=== PATIENT | female | born 1990 | race African-American/Black ===

== ENCOUNTER 2018-05-12 12:56 | Inpatient (IN) | payer OTHER ==
[2018-05-12] MEDS ORDERED: HYDROmorphONE 0.5 MG/0.5 ML SYG IV (13:30)
[2018-05-12] MEDS ORDERED: MAGNESIUM HYDROXIDE 30ML CUP PO (14:00)
[2018-05-12] MEDS ORDERED: DOCUSATE SODIUM 100 MG CAP PO (14:00)
[2018-05-12] MEDS: HEPARIN 5,000 UNIT/0.5 ML VIAL SC ×2 (14:00→22:00)
[2018-05-12] MEDS ORDERED: NACL 0.9% 3 ML SYG IV (14:00)
[2018-05-12] MEDS ORDERED: BISACODYL (EC) 5 MG TAB PO (14:00)
[2018-05-12] MEDS ORDERED: CEPASTAT LOZENGE MT (14:00)
[2018-05-12] MEDS ORDERED: ALBUTEROL/IPRATROPIUM (NEB) 3 ML AMP HHN (14:00)
[2018-05-12] MEDS: FOLIC ACID 1 MG TAB PO (14:14)
[2018-05-12] MEDS: FAMOTIDINE 20 MG TAB PO (14:14)
[2018-05-12] MEDS: SOD CHLORIDE 0.9% 1,000 ML IV (14:14)
[2018-05-12] MEDS: HYDROmorphONE 0.5 MG/0.5 ML SYG IV ×2 (14:14→20:26)
[2018-05-12] MEDS: ONDANSETRON 4 MG INJ IV ×2 (14:15→20:25)
[2018-05-12] MEDS: CEPASTAT LOZENGE MT (14:15)
[2018-05-12] MEDS: DIPHENHYDRAMINE 50 MG INJ IV ×2 (14:15→20:25)
[2018-05-12 14:22] LABS: WHITE BLOOD COUNT 8.1 10^3/ul (4.8-10.8)
[2018-05-12 14:22] LABS: HEMATOCRIT 27.4 % (37.0-47.0); HEMOGLOBIN 9.7 g/dl (12.0-16.0); MEAN CORPUSCULAR HGB CONC 35.4 g/dl (32.0-37.0); MEAN CORPUSCULAR VOLUME 73.5 fl (82.0-101.0); NUCLEATED RED BLOOD CELLS% 1.9 /100WBC (0.0-0.0); PLATELET COUNT 341 10^3/UL (140-415); RED BLOOD COUNT 3.73 10^6/ul (4.20-5.40); RED CELL DISTRIBUTION WIDTH 13.9 % (11.5-14.5)
[2018-05-12 14:24] LABS: MEAN PLATELET VOLUME 9.7 fl (7.4-10.4); POSITIVE DIFF @See below
[2018-05-12 14:25] LABS: ADD MAN DIFF? YES
[2018-05-12 14:39] LABS: ALANINE AMINOTRANSFERASE 17 IU/L (13-69); ALBUMIN/GLOBULIN RATIO 1.33; ALKALINE PHOSPHATASE 42 IU/L (42-121); ANION GAP 8 (8-16); ASPARTATE AMINO TRANSFERASE 29 IU/L (15-46); BLOOD UREA NITROGEN 2 mg/dl (7-20); CALCIUM 8.1 mg/dl (8.4-10.2); CARBON DIOXIDE 25 mmol/L (21-31); CHLORIDE 109 mmol/L (97-110); CREATININE 0.47 mg/dl (0.44-1.00); GLUCOSE 82 mg/dl (70-220); INR 1.03; POTASSIUM 3.3 mmol/L (3.5-5.1); PROTIME 13.6 Sec (11.9-14.9); PT RATIO 1.1; SODIUM 139 mmol/L (135-144)
[2018-05-12] MEDS: ACETAMINOPHEN 325 MG TAB PO (14:42)
[2018-05-12 15:50] LABS: ANISOCYTOSIS 1+ (0-0); EOSINOPHILS % (M) 4 % (0-7); ERYTHROBLAST% (NRBC) (M) 3 % (0-0); LYMPHOCYTES #M 4.7 10^3/ul (0.8-2.9); LYMPHOCYTES % (M) 59 % (15-51); MONOCYTE #M 0.2 10^3/ul (0.3-0.9); MONOCYTES % (M) 3 % (0-11); PLATELET MORPHOLOGY COMMENT @See below; REACTIVE LYMPHOCYTES #M 0.8 10^3/ul (0.0-0.0); REACTIVE LYMPHOCYTES% (M) 11 % (0-0); SEGMENTED NEUTROPHILS (M) % 22 % (39-77); SMUDGE%M 2 % (0-0); TARGET CELLS 1+ (0-0)
[2018-05-12] MEDS: BUDESONIDE (NEB) 0.5MG/2ML AMP HHN ×2 (16:20→21:00)
[2018-05-12] MEDS: ALBUTEROL/IPRATROPIUM (NEB) 3 ML AMP HHN ×2 (16:20→21:00)
[2018-05-12] MEDS: OXYCODONE/ACETAMINOPHEN (5/325) TAB PO (18:33)
[2018-05-12] MEDS: NAPROXEN 500 MG TAB PO (20:20)
[2018-05-12] MEDS: HYDROXYUREA 500 MG CAP PO (20:22)
[2018-05-12] MEDS ORDERED: DIPHENHYDRAMINE 50 MG CAP PO (23:00)
[2018-05-12] MEDS ORDERED: DIPHENHYDRAMINE 25 MG CAP PO (23:00)
[2018-05-13] MEDS: ONDANSETRON 4 MG INJ IV ×4 (02:26→21:25)
[2018-05-13] MEDS: DIPHENHYDRAMINE 50 MG INJ IV ×4 (02:27→21:24)
[2018-05-13] MEDS: HYDROmorphONE 0.5 MG/0.5 ML SYG IV ×4 (02:31→21:26)
[2018-05-13] MEDS: SOD CHLORIDE 0.9% 1,000 ML IV ×2 (03:25→15:09)
[2018-05-13 05:42] LABS: ADD MAN DIFF? NO
[2018-05-13] MEDS: HEPARIN 5,000 UNIT/0.5 ML VIAL SC ×3 (06:00→22:00)
[2018-05-13 06:01] LABS: WHITE BLOOD COUNT 8.4 10^3/ul (4.8-10.8)
[2018-05-13 06:01] LABS: BASOPHIL # 0.1 10^3/ul (0.0-0.1); BASOPHILS % 0.6 % (0.0-2.0); EOSINOPHILS # 0.5 10^3/ul (0.0-0.5); HEMATOCRIT 26.5 % (37.0-47.0); HEMOGLOBIN 9.3 g/dl (12.0-16.0); LYMPHOCYTES # 3.6 10^3/ul (0.8-2.9); LYMPHOCYTES % 43.5 % (15.0-51.0); MEAN CORPUSCULAR HEMOGLOBIN 26.2 pg (29.0-33.0); MEAN CORPUSCULAR HGB CONC 35.1 g/dl (32.0-37.0); MEAN CORPUSCULAR VOLUME 74.6 fl (82.0-101.0); MEAN PLATELET VOLUME 9.9 fl (7.4-10.4); MONOCYTE # 0.7 10^3/ul (0.3-0.9); MONOCYTES % 8.6 % (0.0-11.0); NEUTROPHIL # 3.4 10^3/ul (1.6-7.5); NEUTROPHILS % 40.9 % (39.0-77.0); NUCLEATED RED BLOOD CELLS # 0.2 10^3/ul (0.0-0.0); NUCLEATED RED BLOOD CELLS% 1.9 /100WBC (0.0-0.0); PLATELET COUNT 388 10^3/UL (140-415); RED BLOOD COUNT 3.55 10^6/ul (4.20-5.40); RED CELL DISTRIBUTION WIDTH 13.9 % (11.5-14.5)
[2018-05-13] MEDS: PANTOPRAZOLE (EC) 40 MG TAB PO (06:20)
[2018-05-13 06:26] LABS: ALANINE AMINOTRANSFERASE 18 IU/L (13-69); ALBUMIN 3.7 g/dl (3.3-4.9); ALBUMIN/GLOBULIN RATIO 1.19; ALKALINE PHOSPHATASE 41 IU/L (42-121); ANION GAP 10 (8-16); ASPARTATE AMINO TRANSFERASE 28 IU/L (15-46); BILIRUBIN,INDIRECT 0.9 mg/dl (0-1.1); BILIRUBIN,TOTAL 0.9 mg/dl (0.2-1.3); BLOOD UREA NITROGEN 4 mg/dl (7-20); CALCIUM 8.4 mg/dl (8.4-10.2); CARBON DIOXIDE 25 mmol/L (21-31); CHLORIDE 107 mmol/L (97-110); CREATININE 0.54 mg/dl (0.44-1.00); GLUCOSE 79 mg/dl (70-220); MAGNESIUM 1.6 mg/dl (1.7-2.5); POTASSIUM 3.6 mmol/L (3.5-5.1); SODIUM 138 mmol/L (135-144); TOTAL PROTEIN 6.8 g/dl (6.1-8.1)
[2018-05-13] MEDS: FOLIC ACID 1 MG TAB PO (08:44)
[2018-05-13] MEDS: NAPROXEN 500 MG TAB PO ×2 (08:44→20:37)
[2018-05-13] MEDS: ALBUTEROL/IPRATROPIUM (NEB) 3 ML AMP HHN ×3 (08:54→21:50)
[2018-05-13] MEDS: BUDESONIDE (NEB) 0.5MG/2ML AMP HHN ×2 (09:03→21:49)
[2018-05-13] MEDS: MAGNESIUM OXIDE 400 MG TAB PO (12:43)
[2018-05-13] MEDS: OXYCODONE/ACETAMINOPHEN (5/325) TAB PO ×2 (12:43→23:56)
[2018-05-13] MEDS: POTASSIUM CHLORIDE 20 MEQ POWDER FOR ORAL SOLN PO (12:43)
[2018-05-13] MEDS: HYDROXYUREA 500 MG CAP PO (20:57)
[2018-05-14] MEDS: ONDANSETRON 4 MG INJ IV ×2 (03:27→09:27)
[2018-05-14] MEDS: DIPHENHYDRAMINE 50 MG INJ IV ×2 (03:30→09:27)
[2018-05-14] MEDS: HYDROmorphONE 0.5 MG/0.5 ML SYG IV ×2 (03:32→09:28)
[2018-05-14 04:56] LABS: ADD MAN DIFF? NO
[2018-05-14 05:04] LABS: WHITE BLOOD COUNT 10.3 10^3/ul (4.8-10.8)
[2018-05-14 05:04] LABS: BASOPHILS % 0.4 % (0.0-2.0); EOSINOPHILS # 0.3 10^3/ul (0.0-0.5); EOSINOPHILS % 3.3 % (0.0-7.0); HEMOGLOBIN 9.8 g/dl (12.0-16.0); LYMPHOCYTES # 3.6 10^3/ul (0.8-2.9); LYMPHOCYTES % 35.3 % (15.0-51.0); MEAN CORPUSCULAR HEMOGLOBIN 26.8 pg (29.0-33.0); MEAN CORPUSCULAR HGB CONC 36.3 g/dl (32.0-37.0); MEAN PLATELET VOLUME 9.5 fl (7.4-10.4); MONOCYTE # 0.8 10^3/ul (0.3-0.9); MONOCYTES % 7.4 % (0.0-11.0); NEUTROPHIL # 5.5 10^3/ul (1.6-7.5); NEUTROPHILS % 53.2 % (39.0-77.0); NUCLEATED RED BLOOD CELLS # 0.2 10^3/ul (0.0-0.0); NUCLEATED RED BLOOD CELLS% 1.6 /100WBC (0.0-0.0); PLATELET COUNT 423 10^3/UL (140-415); RED BLOOD COUNT 3.65 10^6/ul (4.20-5.40)
[2018-05-14 05:18] LABS: ANION GAP 10 (8-16); BLOOD UREA NITROGEN 5 mg/dl (7-20); CALCIUM 8.6 mg/dl (8.4-10.2); CARBON DIOXIDE 26 mmol/L (21-31); CHLORIDE 107 mmol/L (97-110); CREATININE 0.55 mg/dl (0.44-1.00); GLUCOSE 79 mg/dl (70-220); MAGNESIUM 1.8 mg/dl (1.7-2.5); PHOSPHORUS 3.3 mg/dl (2.5-4.9); POTASSIUM 3.6 mmol/L (3.5-5.1); SODIUM 139 mmol/L (135-144)
[2018-05-14] MEDS: HEPARIN 5,000 UNIT/0.5 ML VIAL SC (06:00)
[2018-05-14] MEDS: PANTOPRAZOLE (EC) 40 MG TAB PO (06:35)
[2018-05-14] MEDS: SOD CHLORIDE 0.9% 1,000 ML IV (06:37)
[2018-05-14] MEDS: NAPROXEN 500 MG TAB PO (08:33)
[2018-05-14] MEDS: FOLIC ACID 1 MG TAB PO (08:34)
[2018-05-14] MEDS: OXYCODONE/ACETAMINOPHEN (5/325) TAB PO (08:34)
[2018-05-14] MEDS: BUDESONIDE (NEB) 0.5MG/2ML AMP HHN (10:21)
[2018-05-14] MEDS: ALBUTEROL/IPRATROPIUM (NEB) 3 ML AMP HHN (10:21)
== END 2018-05-14 12:32 | disposition home or self-care (01) | DRG 812 ==
LOC: MS1 12:56
DX: D57.00 Hb-SS disease with crisis, unspecified (principal); R52 Pain, unspecified; Z91.19 Patient's noncompliance with other medical treatment and regimen
CPT/HCPCS: 80048; 80053; 83735; 84100; 85025; 85610; 94640; 94664

== ENCOUNTER 2018-06-29 20:55 | Inpatient (IN) | payer OTHER ==
[2018-06-29] MEDS ORDERED: ACETAMINOPHEN 325 MG TAB PO (22:00)
[2018-06-29] MEDS: DIPHENHYDRAMINE 50 MG INJ IV (23:04)
[2018-06-29] MEDS: HYDROmorphONE 0.5 MG/0.5 ML SYG IV (23:04)
[2018-06-29] MEDS: SOD CHLORIDE 0.45% 1,000 ML IV (23:05)
[2018-06-30] MEDS: HYDROmorphONE 0.5 MG/0.5 ML SYG IV ×5 (03:01→21:11)
[2018-06-30] MEDS: PANTOPRAZOLE 40 MG INJ IV (06:29)
[2018-06-30] MEDS: FOLIC ACID 1 MG TAB PO (12:13)
[2018-06-30] MEDS: SOD CHLORIDE 0.45% 1,000 ML IV (12:13)
[2018-06-30] MEDS: MULTIVITAMINS/MINERALS TAB PO (12:13)
[2018-06-30] MEDS: DIPHENHYDRAMINE 50 MG INJ IV ×2 (12:13→21:12)
[2018-07-01] MEDS: SOD CHLORIDE 0.45% 1,000 ML IV (01:20)
[2018-07-01] MEDS: HYDROmorphONE 0.5 MG/0.5 ML SYG IV ×2 (01:22→10:38)
[2018-07-01 05:43] LABS: ADD MAN DIFF? NO
[2018-07-01 05:54] LABS: WHITE BLOOD COUNT 7.7 10^3/ul (4.8-10.8)
[2018-07-01 05:54] LABS: BASOPHIL # 0.1 10^3/ul (0.0-0.1); BASOPHILS % 0.6 % (0.0-2.0); EOSINOPHILS # 0.4 10^3/ul (0.0-0.5); EOSINOPHILS % 5.4 % (0.0-7.0); HEMATOCRIT 27.5 % (37.0-47.0); HEMOGLOBIN 9.8 g/dl (12.0-16.0); LYMPHOCYTES # 3.4 10^3/ul (0.8-2.9); LYMPHOCYTES % 44.1 % (15.0-51.0); MEAN CORPUSCULAR HEMOGLOBIN 27.1 pg (29.0-33.0); MEAN CORPUSCULAR HGB CONC 35.6 g/dl (32.0-37.0); MEAN CORPUSCULAR VOLUME 76.2 fl (82.0-101.0); MEAN PLATELET VOLUME 9.6 fl (7.4-10.4); MONOCYTE # 0.6 10^3/ul (0.3-0.9); MONOCYTES % 8.3 % (0.0-11.0); NEUTROPHIL # 3.2 10^3/ul (1.6-7.5); NEUTROPHILS % 41.3 % (39.0-77.0); NUCLEATED RED BLOOD CELLS # 0.1 10^3/ul (0.0-0.0); NUCLEATED RED BLOOD CELLS% 1.6 /100WBC (0.0-0.0); PLATELET COUNT 358 10^3/UL (140-415); RED BLOOD COUNT 3.61 10^6/ul (4.20-5.40); RED CELL DISTRIBUTION WIDTH 14.4 % (11.5-14.5)
[2018-07-01] MEDS: PANTOPRAZOLE 40 MG INJ IV (06:02)
[2018-07-01] MEDS: DIPHENHYDRAMINE 50 MG INJ IV (10:38)
[2018-07-01] MEDS: MULTIVITAMINS/MINERALS TAB PO (10:39)
[2018-07-01] MEDS: FOLIC ACID 1 MG TAB PO (10:39)
[2018-07-01] MEDS: POTASSIUM CHLORIDE (SR) 8 MEQ CAP PO (10:39)
== END 2018-07-01 13:25 | disposition home or self-care (01) | DRG 812 ==
LOC: PP2 20:55
PROVIDERS: Internal Medicine Nephrology
DX: D57.00 Hb-SS disease with crisis, unspecified (principal)
CPT/HCPCS: 85025

== ENCOUNTER 2018-08-30 00:16 | Inpatient (IN) | payer OTHER ==
[2018-08-30] MEDS: HYDROmorphONE 1 MG/ML SYG IV ×5 (01:25→22:36)
[2018-08-30] MEDS: DIPHENHYDRAMINE 50 MG INJ IV ×4 (01:25→22:36)
[2018-08-30] MEDS ORDERED: ALBUTEROL HFA 8 GM INHALER INH (01:30)
[2018-08-30 05:06] LABS: ADD MAN DIFF? NO
[2018-08-30 05:11] LABS: BASOPHIL # 0.1 10^3/ul (0.0-0.1); BASOPHILS % 0.6 % (0.0-2.0); EOSINOPHILS # 0.6 10^3/ul (0.0-0.5); EOSINOPHILS % 6.9 % (0.0-7.0); HEMATOCRIT 26.7 % (37.0-47.0); HEMOGLOBIN 9.4 g/dl (12.0-16.0); LYMPHOCYTES # 4.2 10^3/ul (0.8-2.9); LYMPHOCYTES % 50.2 % (15.0-51.0); MEAN CORPUSCULAR HEMOGLOBIN 26.2 pg (29.0-33.0); MEAN CORPUSCULAR HGB CONC 35.2 g/dl (32.0-37.0); MEAN CORPUSCULAR VOLUME 74.4 fl (82.0-101.0); MEAN PLATELET VOLUME 9.5 fl (7.4-10.4); MONOCYTE # 0.6 10^3/ul (0.3-0.9); MONOCYTES % 7.6 % (0.0-11.0); NEUTROPHIL # 2.9 10^3/ul (1.6-7.5); NEUTROPHILS % 34.5 % (39.0-77.0); NUCLEATED RED BLOOD CELLS # 0.2 10^3/ul (0.0-0.0); NUCLEATED RED BLOOD CELLS% 2.2 /100WBC (0.0-0.0); PLATELET COUNT 446 10^3/UL (140-415); RED BLOOD COUNT 3.59 10^6/ul (4.20-5.40); RED CELL DISTRIBUTION WIDTH 14.3 % (11.5-14.5)
[2018-08-30 05:11] LABS: WHITE BLOOD COUNT 8.4 10^3/ul (4.8-10.8)
[2018-08-30 05:27] LABS: ANION GAP 6 (5-13); BLOOD UREA NITROGEN 8 mg/dl (7-20); CALCIUM 8.6 mg/dl (8.4-10.2); CARBON DIOXIDE 29 mmol/L (21-31); CHLORIDE 104 mmol/L (97-110); CREATININE 0.49 mg/dl (0.44-1.00); Estimated GFR > 60 mL/min (>60); GLUCOSE 79 mg/dl (70-220); POTASSIUM 3.9 mmol/L (3.5-5.1); SODIUM 139 mmol/L (135-144)
[2018-08-30] MEDS: PANTOPRAZOLE (EC) 40 MG TAB PO (05:36)
[2018-08-30] MEDS: HYDROCODONE/APAP (5/325) TAB PO (08:11)
[2018-08-30 08:40] LABS: IRON 56 ug/dl (35-150)
[2018-08-30 08:49] LABS: % IRON SATURATION 14 % SAT (22-52); TOTAL IRON BINDING CAPACITY 394 ug/dl (241-421)
[2018-08-30 09:34] LABS: FERRITIN 19.8 ng/ml (6.2-137.0)
[2018-08-30] MEDS: SOD CHLORIDE 0.9% 1,000 ML IV (10:15)
[2018-08-30 10:53] LABS: ADD UMIC YES; UR ASCORBIC ACID NEGATIVE (NEGATIVE); UR BILIRUBIN (Dip) NEGATIVE (NEGATIVE); UR BLOOD (Dip) 1+ mg/dL (NEGATIVE); UR CLARITY CLEAR (CLEAR); UR COLOR YELLOW (YELLOW); UR GLUCOSE (Dip) NEGATIVE (NEGATIVE); UR KETONES (Dip) NEGATIVE (NEGATIVE); UR LEUKOCYTE ESTERASE (Dip) NEGATIVE Leu/ul (NEGATIVE); UR NITRITE (Dip) NEGATIVE (NEGATIVE); UR RBC 3 /HPF (0-5); UR TOTAL PROTEIN (Dip) NEGATIVE (NEGATIVE); UR UROBILINOGEN (Dip) NEGATIVE (NEGATIVE); UR WBC 1 /HPF (0-5)
[2018-08-30] MEDS: LEVOFLOXACIN 750 MG TABLET PO (11:14)
[2018-08-30] MEDS: HYDROCODONE/APAP (10/325) TAB PO ×2 (14:06→20:34)
[2018-08-30] MEDS: ONDANSETRON 4 MG INJ IV (14:18)
[2018-08-30] MEDS: FOLIC ACID 1 MG TAB PO (21:27)
[2018-08-30] MEDS: HYDROXYUREA 500 MG CAP PO (21:30)
[2018-08-31] MEDS: SOD CHLORIDE 0.9% 1,000 ML IV ×2 (02:36→17:41)
[2018-08-31] MEDS: HYDROmorphONE 1 MG/ML SYG IV ×4 (02:36→20:27)
[2018-08-31] MEDS: LEVOFLOXACIN 750 MG TABLET PO (05:47)
[2018-08-31] MEDS: PANTOPRAZOLE (EC) 40 MG TAB PO (05:47)
[2018-08-31] MEDS: HYDROCODONE/APAP (10/325) TAB PO ×2 (05:50→11:25)
[2018-08-31] MEDS: DIPHENHYDRAMINE 50 MG INJ IV ×3 (06:45→20:27)
[2018-08-31] MEDS: DOCUSATE SODIUM 100 MG CAP PO ×2 (11:25→20:27)
[2018-08-31] MEDS: ENOXAPARIN 30 MG/0.3 ML SYG SC (14:00)
[2018-08-31] MEDS: ONDANSETRON 4 MG INJ IV (15:42)
[2018-08-31] MEDS: FOLIC ACID 1 MG TAB PO (20:27)
[2018-08-31] MEDS: HYDROXYUREA 500 MG CAP PO (20:29)
[2018-09-01] MEDS: SOD CHLORIDE 0.9% 1,000 ML IV ×2 (00:12→05:38)
[2018-09-01] MEDS: DIPHENHYDRAMINE 50 MG INJ IV ×3 (03:01→15:17)
[2018-09-01] MEDS: HYDROmorphONE 1 MG/ML SYG IV ×4 (03:02→19:24)
[2018-09-01 05:07] LABS: ADD MAN DIFF? NO
[2018-09-01 05:13] LABS: WHITE BLOOD COUNT 6.6 10^3/ul (4.8-10.8)
[2018-09-01 05:13] LABS: BASOPHILS % 0.6 % (0.0-2.0); EOSINOPHILS # 0.4 10^3/ul (0.0-0.5); EOSINOPHILS % 6.4 % (0.0-7.0); HEMATOCRIT 27.3 % (37.0-47.0); HEMOGLOBIN 9.8 g/dl (12.0-16.0); LYMPHOCYTES # 2.3 10^3/ul (0.8-2.9); LYMPHOCYTES % 34.7 % (15.0-51.0); MEAN CORPUSCULAR HEMOGLOBIN 26.5 pg (29.0-33.0); MEAN CORPUSCULAR HGB CONC 35.9 g/dl (32.0-37.0); MEAN CORPUSCULAR VOLUME 73.8 fl (82.0-101.0); MEAN PLATELET VOLUME 9.2 fl (7.4-10.4); MONOCYTE # 0.6 10^3/ul (0.3-0.9); MONOCYTES % 8.5 % (0.0-11.0); NEUTROPHIL # 3.3 10^3/ul (1.6-7.5); NEUTROPHILS % 49.3 % (39.0-77.0); NUCLEATED RED BLOOD CELLS # 0.1 10^3/ul (0.0-0.0); NUCLEATED RED BLOOD CELLS% 2.1 /100WBC (0.0-0.0); PLATELET COUNT 431 10^3/UL (140-415); RED CELL DISTRIBUTION WIDTH 14.1 % (11.5-14.5)
[2018-09-01] MEDS: LEVOFLOXACIN 750 MG TABLET PO (05:38)
[2018-09-01] MEDS: PANTOPRAZOLE (EC) 40 MG TAB PO (05:38)
[2018-09-01] MEDS: HYDROCODONE/APAP (10/325) TAB PO ×2 (05:42→12:38)
[2018-09-01] MEDS: ENOXAPARIN 30 MG/0.3 ML SYG SC (09:00)
[2018-09-01] MEDS: DOCUSATE SODIUM 100 MG CAP PO (09:19)
== END 2018-09-01 20:50 | disposition home or self-care (01) | DRG 812 ==
LOC: MS1 00:16
DX: D57.00 Hb-SS disease with crisis, unspecified (principal); Z87.440 Personal history of urinary (tract) infections; Z90.49 Acquired absence of other specified parts of digestive tract
CPT/HCPCS: 71045; 80048; 81001; 82728; 83540; 85025; 87040; 87086

== ENCOUNTER 2018-09-12 06:37 | Emergency (ER) | payer OTHER ==
[2018-09-12 07:50] LABS: URINE PH (Dip) POC 5.5 (5.0-8.5)
[2018-09-12 07:50] LABS: URINE BLOOD (Dip) POC Negative (NEGATIVE); URINE GLUCOSE (Dip) POC Negative (NEGATIVE); URINE KETONES (Dip) POC Negative (NEGATIVE); URINE LEUKOCYTE EST (Dip) POC Trace (NEGATIVE); URINE NITRITE (Dip) POC Negative (NEGATIVE); URINE TOTAL PROTEIN POC Negative (NEGATIVE)
[2018-09-12] MEDS: HYDROmorphONE 2 MG/ML SYG IV ×2 (08:15→10:30)
[2018-09-12] MEDS: SOD CHLORIDE 0.9% 1,000 ML IV (08:15)
[2018-09-12] MEDS: DIPHENHYDRAMINE 50 MG INJ IV ×2 (08:16→10:35)
[2018-09-12 08:24] LABS: ADD MAN DIFF? NO
[2018-09-12 08:27] LABS: WHITE BLOOD COUNT 8.4 10^3/ul (4.8-10.8)
[2018-09-12 08:27] LABS: BASOPHIL # 0.1 10^3/ul (0.0-0.1); BASOPHILS % 0.6 % (0.0-2.0); EOSINOPHILS # 0.9 10^3/ul (0.0-0.5); EOSINOPHILS % 10.5 % (0.0-7.0); HEMATOCRIT 23.7 % (37.0-47.0); HEMOGLOBIN 8.6 g/dl (12.0-16.0); LYMPHOCYTES # 4.4 10^3/ul (0.8-2.9); LYMPHOCYTES % 52.8 % (15.0-51.0); MEAN CORPUSCULAR HEMOGLOBIN 26.7 pg (29.0-33.0); MEAN CORPUSCULAR HGB CONC 36.3 g/dl (32.0-37.0); MEAN CORPUSCULAR VOLUME 73.6 fl (82.0-101.0); MONOCYTE # 0.7 10^3/ul (0.3-0.9); MONOCYTES % 8.1 % (0.0-11.0); NEUTROPHIL # 2.3 10^3/ul (1.6-7.5); NEUTROPHILS % 27.6 % (39.0-77.0); NUCLEATED RED BLOOD CELLS # 0.2 10^3/ul (0.0-0.0); NUCLEATED RED BLOOD CELLS% 2.3 /100WBC (0.0-0.0); PLATELET COUNT 425 10^3/UL (140-415); RED BLOOD COUNT 3.22 10^6/ul (4.20-5.40); RED CELL DISTRIBUTION WIDTH 15.2 % (11.5-14.5); RETICULOCYTE COUNT # 0.115 X10^6 (0.020-0.110); RETICULOCYTE COUNT % 3.6 % (0.5-1.5); RETICULOCYTE RBC 3.22
[2018-09-12 08:47] LABS: ALANINE AMINOTRANSFERASE 29 IU/L (13-69); ALBUMIN 4.1 g/dl (3.3-4.9); ALBUMIN/GLOBULIN RATIO 1.51; ALKALINE PHOSPHATASE 49 IU/L (42-121); ANION GAP 8 (5-13); ASPARTATE AMINO TRANSFERASE 41 IU/L (15-46); BILIRUBIN,INDIRECT 0.7 mg/dl (0-1.1); BILIRUBIN,TOTAL 0.7 mg/dl (0.2-1.3); BLOOD UREA NITROGEN 5 mg/dl (7-20); CALCIUM 8.2 mg/dl (8.4-10.2); CARBON DIOXIDE 27 mmol/L (21-31); CHLORIDE 106 mmol/L (97-110); CREATININE 0.48 mg/dl (0.44-1.00); Estimated GFR > 60 mL/min (>60); GLUCOSE 83 mg/dl (70-220); LIPASE 57 U/L (23-300); POTASSIUM 4.1 mmol/L (3.5-5.1); SODIUM 141 mmol/L (135-144); TOTAL PROTEIN 6.8 g/dl (6.1-8.1)
[2018-09-12] MEDS ORDERED: DIPHENHYDRAMINE 50 MG INJ IV (10:30)
[2018-09-12] MEDS: ONDANSETRON 4 MG INJ IV (10:30)
== END 2018-09-12 11:34 | disposition home or self-care (01) ==
LOC: FTE 06:37 → E/R 11:34
DX: D57.00 Hb-SS disease with crisis, unspecified (principal); J45.909 Unspecified asthma, uncomplicated; Z87.891 Personal history of nicotine dependence
CPT/HCPCS: 36415; 71045; 80053; 81003; 81025; 83690; 85025; 85045; 96374; 96375; 96376; 99284-25

== ENCOUNTER 2018-09-19 03:25 | Emergency (ER) | payer OTHER ==
[2018-09-19] MEDS ORDERED: ONDANSETRON 4 MG INJ IV (05:25)
[2018-09-19] MEDS ORDERED: morphine 4 MG/ML VIAL IV (05:25)
[2018-09-19 05:36] LABS: ADD MAN DIFF? NO
[2018-09-19] MEDS: SOD CHLORIDE 0.9% 1,000 ML IV ×2 (05:36→06:40)
[2018-09-19 05:39] LABS: WHITE BLOOD COUNT 8.3 10^3/ul (4.8-10.8)
[2018-09-19 05:39] LABS: BASOPHILS % 0.5 % (0.0-2.0); EOSINOPHILS # 0.5 10^3/ul (0.0-0.5); EOSINOPHILS % 6.4 % (0.0-7.0); HEMATOCRIT 25.2 % (37.0-47.0); LYMPHOCYTES # 3.5 10^3/ul (0.8-2.9); LYMPHOCYTES % 41.6 % (15.0-51.0); MEAN CORPUSCULAR HGB CONC 35.7 g/dl (32.0-37.0); MEAN CORPUSCULAR VOLUME 72.8 fl (82.0-101.0); MEAN PLATELET VOLUME 9.1 fl (7.4-10.4); MONOCYTE # 0.6 10^3/ul (0.3-0.9); MONOCYTES % 7.5 % (0.0-11.0); NEUTROPHIL # 3.7 10^3/ul (1.6-7.5); NEUTROPHILS % 43.9 % (39.0-77.0); NUCLEATED RED BLOOD CELLS # 0.2 10^3/ul (0.0-0.0); NUCLEATED RED BLOOD CELLS% 1.8 /100WBC (0.0-0.0); PLATELET COUNT 409 10^3/UL (140-415); RED BLOOD COUNT 3.46 10^6/ul (4.20-5.40); RED CELL DISTRIBUTION WIDTH 14.8 % (11.5-14.5)
[2018-09-19 05:43] LABS: ADD UMIC NO; UR ASCORBIC ACID NEGATIVE (NEGATIVE); UR BILIRUBIN (Dip) NEGATIVE (NEGATIVE); UR BLOOD (Dip) NEGATIVE (NEGATIVE); UR CLARITY CLEAR (CLEAR); UR COLOR YELLOW (YELLOW); UR GLUCOSE (Dip) NEGATIVE (NEGATIVE); UR KETONES (Dip) NEGATIVE (NEGATIVE); UR LEUKOCYTE ESTERASE (Dip) NEGATIVE Leu/ul (NEGATIVE); UR NITRITE (Dip) NEGATIVE (NEGATIVE); UR SPECIFIC GRAVITY (Dip) 1.009 (1.003-1.030); UR TOTAL PROTEIN (Dip) NEGATIVE (NEGATIVE); UR UROBILINOGEN (Dip) NEGATIVE (NEGATIVE)
[2018-09-19 06:00] LABS: ALANINE AMINOTRANSFERASE 19 IU/L (13-69); ALBUMIN 4.2 g/dl (3.3-4.9); ALKALINE PHOSPHATASE 74 IU/L (42-121); ANION GAP 11 (5-13); ASPARTATE AMINO TRANSFERASE 31 IU/L (15-46); BILIRUBIN,INDIRECT 0.9 mg/dl (0-1.1); BILIRUBIN,TOTAL 0.9 mg/dl (0.2-1.3); BLOOD UREA NITROGEN 8 mg/dl (7-20); CALCIUM 8.8 mg/dl (8.4-10.2); CARBON DIOXIDE 27 mmol/L (21-31); CHLORIDE 106 mmol/L (97-110); CREATININE 0.47 mg/dl (0.44-1.00); Estimated GFR > 60 mL/min (>60); GLUCOSE 83 mg/dl (70-220); LIPASE 97 U/L (23-300); POTASSIUM 3.7 mmol/L (3.5-5.1); SODIUM 144 mmol/L (135-144); TOTAL PROTEIN 7.2 g/dl (6.1-8.1)
[2018-09-19 06:11] LABS: TROPONIN-I 0.012 ng/ml (0.000-0.120)
[2018-09-19] MEDS: ONDANSETRON 4 MG INJ IV ×2 (06:40→08:35)
[2018-09-19] MEDS: DIPHENHYDRAMINE 50 MG INJ IV ×2 (06:41→08:35)
[2018-09-19] MEDS: HYDROmorphONE 1 MG/ML SYG IV ×2 (06:41→08:35)
[2018-09-19 06:57] LABS: RETICULOCYTE COUNT # 0.095 X10^6 (0.020-0.110); RETICULOCYTE COUNT % 2.8 % (0.5-1.5)
== END 2018-09-19 10:13 | disposition home or self-care (01) ==
LOC: E/R 03:25
DX: D57.00 Hb-SS disease with crisis, unspecified (principal); J45.909 Unspecified asthma, uncomplicated; F17.210 Nicotine dependence, cigarettes, uncomplicated
CPT/HCPCS: 36415; 80053; 81003; 81025; 83690; 84484; 85025; 85045; 96374; 96375; 96376; 99284-25

== ENCOUNTER 2018-10-07 05:29 | Inpatient (IN) | payer OTHER ==
[2018-10-07] MEDS ORDERED: ACETAMINOPHEN 325 MG TAB PO (07:30)
[2018-10-07] MEDS ORDERED: IBUPROFEN 200 MG TAB PO (07:30)
[2018-10-07] MEDS: FOLIC ACID 1 MG TAB PO ×2 (08:15→21:00)
[2018-10-07] MEDS: DEXTROSE 5%-0.45% NACL 1,000 ML IV (08:16)
[2018-10-07] MEDS: DIPHENHYDRAMINE 50 MG INJ IV ×2 (08:18→17:30)
[2018-10-07] MEDS: HYDROmorphONE 0.5 MG/0.5 ML SYG IV ×4 (08:27→22:17)
[2018-10-07] MEDS: SOD CHLORIDE 0.9% 1,000 ML IV (10:30)
[2018-10-07 11:33] LABS: ADD MAN DIFF? NO
[2018-10-07 11:48] LABS: BASOPHILS % 0.3 % (0.0-2.0); EOSINOPHILS # 0.3 10^3/ul (0.0-0.5); EOSINOPHILS % 2.9 % (0.0-7.0); HEMATOCRIT 25.5 % (37.0-47.0); HEMOGLOBIN 9.2 g/dl (12.0-16.0); LYMPHOCYTES # 1.6 10^3/ul (0.8-2.9); LYMPHOCYTES % 15.7 % (15.0-51.0); MEAN CORPUSCULAR HEMOGLOBIN 25.6 pg (29.0-33.0); MEAN CORPUSCULAR HGB CONC 36.1 g/dl (32.0-37.0); MEAN PLATELET VOLUME 9.2 fl (7.4-10.4); MONOCYTE # 0.3 10^3/ul (0.3-0.9); MONOCYTES % 2.9 % (0.0-11.0); NEUTROPHIL # 7.9 10^3/ul (1.6-7.5); NEUTROPHILS % 77.9 % (39.0-77.0); NUCLEATED RED BLOOD CELLS # 0.1 10^3/ul (0.0-0.0); NUCLEATED RED BLOOD CELLS% 1.2 /100WBC (0.0-0.0); PLATELET COUNT 401 10^3/UL (140-415); RED BLOOD COUNT 3.59 10^6/ul (4.20-5.40); RED CELL DISTRIBUTION WIDTH 14.6 % (11.5-14.5)
[2018-10-07 11:48] LABS: WHITE BLOOD COUNT 10.1 10^3/ul (4.8-10.8)
[2018-10-07 11:59] LABS: ALANINE AMINOTRANSFERASE 18 IU/L (13-69); ALBUMIN/GLOBULIN RATIO 1.29; ALKALINE PHOSPHATASE 42 IU/L (42-121); ANION GAP 9 (5-13); ASPARTATE AMINO TRANSFERASE 26 IU/L (15-46); BILIRUBIN,INDIRECT 1.7 mg/dl (0-1.1); BILIRUBIN,TOTAL 1.7 mg/dl (0.2-1.3); BLOOD UREA NITROGEN 6 mg/dl (7-20); CALCIUM 8.5 mg/dl (8.4-10.2); CARBON DIOXIDE 24 mmol/L (21-31); CHLORIDE 104 mmol/L (97-110); CREATININE 0.46 mg/dl (0.44-1.00); Estimated GFR > 60 mL/min (>60); GLUCOSE 79 mg/dl (70-220); POTASSIUM 3.2 mmol/L (3.5-5.1); SODIUM 137 mmol/L (135-144); TOTAL PROTEIN 7.1 g/dl (6.1-8.1)
[2018-10-07] MEDS: POTASSIUM CHLORIDE (SR) 20 MEQ TAB PO (12:47)
[2018-10-07] MEDS: HYDROXYUREA 500 MG CAP PO (22:16)
[2018-10-08] MEDS: SOD CHLORIDE 0.9% 1,000 ML IV ×4 (00:48→17:45)
[2018-10-08] MEDS: DIPHENHYDRAMINE 50 MG INJ IV ×3 (02:31→19:53)
[2018-10-08] MEDS: HYDROmorphONE 0.5 MG/0.5 ML SYG IV ×6 (02:31→23:52)
[2018-10-08] MEDS: PANTOPRAZOLE (EC) 40 MG TAB PO (06:00)
[2018-10-08 06:28] LABS: ADD MAN DIFF? NO
[2018-10-08 06:37] LABS: BASOPHILS % 0.8 % (0.0-2.0); EOSINOPHILS # 0.4 10^3/ul (0.0-0.5); HEMATOCRIT 25.5 % (37.0-47.0); HEMOGLOBIN 9.1 g/dl (12.0-16.0); LYMPHOCYTES # 1.9 10^3/ul (0.8-2.9); LYMPHOCYTES % 36.1 % (15.0-51.0); MEAN CORPUSCULAR HEMOGLOBIN 25.4 pg (29.0-33.0); MEAN CORPUSCULAR HGB CONC 35.7 g/dl (32.0-37.0); MEAN CORPUSCULAR VOLUME 71.2 fl (82.0-101.0); MEAN PLATELET VOLUME 9.4 fl (7.4-10.4); MONOCYTE # 0.3 10^3/ul (0.3-0.9); MONOCYTES % 5.9 % (0.0-11.0); NEUTROPHIL # 2.6 10^3/ul (1.6-7.5); NEUTROPHILS % 49.8 % (39.0-77.0); NUCLEATED RED BLOOD CELLS # 0.1 10^3/ul (0.0-0.0); NUCLEATED RED BLOOD CELLS% 1.9 /100WBC (0.0-0.0); PLATELET COUNT 378 10^3/UL (140-415); RED BLOOD COUNT 3.58 10^6/ul (4.20-5.40); RED CELL DISTRIBUTION WIDTH 14.6 % (11.5-14.5)
[2018-10-08 06:37] LABS: WHITE BLOOD COUNT 5.3 10^3/ul (4.8-10.8)
[2018-10-08 07:03] LABS: PHOSPHORUS 3.5 mg/dl (2.5-4.9)
[2018-10-08 07:03] LABS: MAGNESIUM 1.6 mg/dl (1.7-2.5)
[2018-10-08 07:18] LABS: ANION GAP 8 (5-13); BLOOD UREA NITROGEN 4 mg/dl (7-20); CALCIUM 8.4 mg/dl (8.4-10.2); CARBON DIOXIDE 23 mmol/L (21-31); CHLORIDE 106 mmol/L (97-110); CREATININE 0.47 mg/dl (0.44-1.00); Estimated GFR > 60 mL/min (>60); GLUCOSE 76 mg/dl (70-220); POTASSIUM 3.2 mmol/L (3.5-5.1); SODIUM 137 mmol/L (135-144)
[2018-10-08 10:30] LABS: IRON 71 ug/dl (35-150)
[2018-10-08 10:39] LABS: % IRON SATURATION 20 % SAT (22-52); TOTAL IRON BINDING CAPACITY 361 ug/dl (241-421)
[2018-10-08 11:55] LABS: FERRITIN 34.2 ng/ml (6.2-137.0)
[2018-10-08] MEDS: MAGNESIUM SULFATE 2 GM/50 ML 50 ML IVPB (11:59)
[2018-10-08] MEDS: POTASSIUM CHLORIDE (SR) 20 MEQ TAB PO (11:59)
[2018-10-08] MEDS: ONDANSETRON (ODT) 4 MG TAB ODT ×3 (14:31→20:42)
[2018-10-08] MEDS: FOLIC ACID 1 MG TAB PO (20:40)
[2018-10-08] MEDS: HYDROXYUREA 500 MG CAP PO (20:42)
[2018-10-09] MEDS: HYDROmorphONE 0.5 MG/0.5 ML SYG IV ×3 (04:03→15:56)
[2018-10-09] MEDS: DIPHENHYDRAMINE 50 MG INJ IV ×3 (04:03→15:56)
[2018-10-09 05:12] LABS: ADD MAN DIFF? NO
[2018-10-09 05:25] LABS: BASOPHILS % 0.6 % (0.0-2.0); EOSINOPHILS # 0.4 10^3/ul (0.0-0.5); EOSINOPHILS % 9.2 % (0.0-7.0); HEMATOCRIT 25.4 % (37.0-47.0); HEMOGLOBIN 8.8 g/dl (12.0-16.0); LYMPHOCYTES # 2.5 10^3/ul (0.8-2.9); LYMPHOCYTES % 52.5 % (15.0-51.0); MEAN CORPUSCULAR HEMOGLOBIN 25.6 pg (29.0-33.0); MEAN CORPUSCULAR HGB CONC 34.6 g/dl (32.0-37.0); MEAN CORPUSCULAR VOLUME 73.8 fl (82.0-101.0); MEAN PLATELET VOLUME 9.4 fl (7.4-10.4); MONOCYTE # 0.5 10^3/ul (0.3-0.9); MONOCYTES % 10.2 % (0.0-11.0); NEUTROPHIL # 1.3 10^3/ul (1.6-7.5); NEUTROPHILS % 27.1 % (39.0-77.0); NUCLEATED RED BLOOD CELLS # 0.1 10^3/ul (0.0-0.0); NUCLEATED RED BLOOD CELLS% 2.3 /100WBC (0.0-0.0); PLATELET COUNT 327 10^3/UL (140-415); RED BLOOD COUNT 3.44 10^6/ul (4.20-5.40); RED CELL DISTRIBUTION WIDTH 14.7 % (11.5-14.5)
[2018-10-09 05:25] LABS: WHITE BLOOD COUNT 4.7 10^3/ul (4.8-10.8)
[2018-10-09 05:36] LABS: POSITIVE DIFF @See below
[2018-10-09] MEDS: ONDANSETRON (ODT) 4 MG TAB ODT ×3 (05:43→11:20)
[2018-10-09] MEDS: PANTOPRAZOLE (EC) 40 MG TAB PO (05:45)
[2018-10-09 05:49] LABS: ANION GAP 6 (5-13); BLOOD UREA NITROGEN 5 mg/dl (7-20); CALCIUM 8.5 mg/dl (8.4-10.2); CARBON DIOXIDE 26 mmol/L (21-31); CHLORIDE 108 mmol/L (97-110); CREATININE 0.44 mg/dl (0.44-1.00); Estimated GFR > 60 mL/min (>60); GLUCOSE 82 mg/dl (70-220); POTASSIUM 3.8 mmol/L (3.5-5.1); SODIUM 140 mmol/L (135-144)
[2018-10-09] MEDS: SOD CHLORIDE 0.9% 1,000 ML IV (11:16)
== END 2018-10-09 17:57 | disposition home or self-care (01) | DRG 812 ==
LOC: TEL 05:29 → 2NE 14:08
DX: D57.00 Hb-SS disease with crisis, unspecified (principal); M54.5 Low back pain; G89.29 Other chronic pain; E87.6 Hypokalemia; E83.42 Hypomagnesemia
CPT/HCPCS: 80048; 80053; 82728; 83540; 83735; 84100; 85025; 87081; 93970

== ENCOUNTER 2018-10-21 08:20 | Emergency (ER) | payer OTHER ==
[2018-10-21 09:30] LABS: ANION GAP 6 (5-13); BLOOD UREA NITROGEN 9 mg/dl (7-20); CALCIUM 8.6 mg/dl (8.4-10.2); CARBON DIOXIDE 27 mmol/L (21-31); CHLORIDE 107 mmol/L (97-110); CREATININE 0.45 mg/dl (0.44-1.00); Estimated GFR > 60 mL/min (>60); GLUCOSE 88 mg/dl (70-220); SODIUM 140 mmol/L (135-144)
[2018-10-21 09:42] LABS: TROPONIN-I 0.015 ng/ml (0.000-0.120)
[2018-10-21] MEDS: ONDANSETRON 4 MG INJ IV (09:50)
[2018-10-21] MEDS: HYDROmorphONE 1 MG/ML SYG IV (09:50)
[2018-10-21] MEDS: DIPHENHYDRAMINE 50 MG INJ IV ×2 (09:50→11:15)
[2018-10-21] MEDS: SOD CHLORIDE 0.9% 1,000 ML IV (09:53)
[2018-10-21 10:27] LABS: ADD MAN DIFF? NO
[2018-10-21 10:28] LABS: WHITE BLOOD COUNT 5.1 10^3/ul (4.8-10.8)
[2018-10-21 10:28] LABS: BASOPHIL # 0.1 10^3/ul (0.0-0.1); EOSINOPHILS # 0.4 10^3/ul (0.0-0.5); EOSINOPHILS % 7.6 % (0.0-7.0); HEMATOCRIT 25.9 % (37.0-47.0); HEMOGLOBIN 9.1 g/dl (12.0-16.0); LYMPHOCYTES # 2.4 10^3/ul (0.8-2.9); LYMPHOCYTES % 47.5 % (15.0-51.0); MEAN CORPUSCULAR HEMOGLOBIN 25.1 pg (29.0-33.0); MEAN CORPUSCULAR HGB CONC 35.1 g/dl (32.0-37.0); MEAN CORPUSCULAR VOLUME 71.5 fl (82.0-101.0); MEAN PLATELET VOLUME 9.4 fl (7.4-10.4); MONOCYTE # 0.5 10^3/ul (0.3-0.9); MONOCYTES % 10.4 % (0.0-11.0); NEUTROPHIL # 1.7 10^3/ul (1.6-7.5); NEUTROPHILS % 33.3 % (39.0-77.0); NUCLEATED RED BLOOD CELLS # 0.1 10^3/ul (0.0-0.0); NUCLEATED RED BLOOD CELLS% 2.3 /100WBC (0.0-0.0); PLATELET COUNT 472 10^3/UL (140-415); RED BLOOD COUNT 3.62 10^6/ul (4.20-5.40); RED CELL DISTRIBUTION WIDTH 15.8 % (11.5-14.5)
[2018-10-21] MEDS: HYDROmorphONE 2 MG/ML SYG IV (11:07)
[2018-10-21] MEDS: KETOROLAC 30 MG INJ IV (11:07)
[2018-10-21 12:07] LABS: SICKLE CELL SCREEN POSITIVE (NEGATIVE)
== END 2018-10-21 13:15 | disposition home or self-care (01) ==
LOC: E/R 08:20
DX: D57.00 Hb-SS disease with crisis, unspecified (principal)
CPT/HCPCS: 80048; 81025; 84484; 85025; 85660; 96374; 96375; 96376; 99284-25

== ENCOUNTER 2018-10-22 08:58 | Observation (INO) | payer OTHER ==
[2018-10-22] MEDS ORDERED: ONDANSETRON 4 MG INJ (09:33)
[2018-10-22] MEDS: DIPHENHYDRAMINE 50 MG INJ IV ×2 (09:50→11:17)
[2018-10-22] MEDS: HYDROmorphONE 1 MG/ML SYG IV (09:50)
[2018-10-22 09:52] LABS: ADD MAN DIFF? NO
[2018-10-22 09:57] LABS: WHITE BLOOD COUNT 5.2 10^3/ul (4.8-10.8)
[2018-10-22 09:57] LABS: BASOPHILS % 0.8 % (0.0-2.0); EOSINOPHILS # 0.3 10^3/ul (0.0-0.5); EOSINOPHILS % 6.2 % (0.0-7.0); HEMATOCRIT 28.3 % (37.0-47.0); HEMOGLOBIN 9.8 g/dl (12.0-16.0); MEAN CORPUSCULAR HEMOGLOBIN 24.9 pg (29.0-33.0); MEAN CORPUSCULAR HGB CONC 34.6 g/dl (32.0-37.0); MEAN CORPUSCULAR VOLUME 71.8 fl (82.0-101.0); MEAN PLATELET VOLUME 9.1 fl (7.4-10.4); MONOCYTE # 0.5 10^3/ul (0.3-0.9); MONOCYTES % 10.1 % (0.0-11.0); NEUTROPHIL # 2.3 10^3/ul (1.6-7.5); NEUTROPHILS % 44.5 % (39.0-77.0); NUCLEATED RED BLOOD CELLS # 0.1 10^3/ul (0.0-0.0); NUCLEATED RED BLOOD CELLS% 2.1 /100WBC (0.0-0.0); PLATELET COUNT 480 10^3/UL (140-415); RED BLOOD COUNT 3.94 10^6/ul (4.20-5.40); RED CELL DISTRIBUTION WIDTH 15.9 % (11.5-14.5)
[2018-10-22 10:01] LABS: ADD UMIC NO; UR ASCORBIC ACID NEGATIVE (NEGATIVE); UR BACTERIA FEW /HPF (NONE SEEN); UR BILIRUBIN (Dip) NEGATIVE (NEGATIVE); UR BLOOD (Dip) NEGATIVE (NEGATIVE); UR CLARITY SLIGHTLY CLOUDY (CLEAR); UR COLOR YELLOW (YELLOW); UR GLUCOSE (Dip) NEGATIVE (NEGATIVE); UR KETONES (Dip) NEGATIVE (NEGATIVE); UR LEUKOCYTE ESTERASE (Dip) NEGATIVE Leu/ul (NEGATIVE); UR NITRITE (Dip) NEGATIVE (NEGATIVE); UR RBC 0 /HPF (0-5); UR SPECIFIC GRAVITY (Dip) 1.008 (1.003-1.030); UR SQUAMOUS EPITHELIAL CELL MODERATE /HPF (FEW); UR TOTAL PROTEIN (Dip) NEGATIVE (NEGATIVE); UR UROBILINOGEN (Dip) NEGATIVE (NEGATIVE); UR WBC 1 /HPF (0-5)
[2018-10-22] MEDS: ONDANSETRON INJ 8 MG in DEXTROSE 5% 50 ML IV (10:02)
[2018-10-22 10:07] LABS: RETICULOCYTE RBC 3.92
[2018-10-22 10:07] LABS: RETICULOCYTE COUNT # 0.069 X10^6 (0.020-0.110); RETICULOCYTE COUNT % 1.8 % (0.5-1.5)
[2018-10-22 10:15] LABS: ALANINE AMINOTRANSFERASE 14 IU/L (13-69); ALBUMIN 4.2 g/dl (3.3-4.9); ALBUMIN/GLOBULIN RATIO 1.27; ALKALINE PHOSPHATASE 59 IU/L (42-121); ANION GAP 10 (5-13); ASPARTATE AMINO TRANSFERASE 34 IU/L (15-46); BILIRUBIN,INDIRECT 0.9 mg/dl (0-1.1); BILIRUBIN,TOTAL 0.9 mg/dl (0.2-1.3); BLOOD UREA NITROGEN 7 mg/dl (7-20); CALCIUM 8.8 mg/dl (8.4-10.2); CARBON DIOXIDE 28 mmol/L (21-31); CHLORIDE 105 mmol/L (97-110); CREATININE 0.52 mg/dl (0.44-1.00); Estimated GFR > 60 mL/min (>60); GLUCOSE 91 mg/dl (70-220); POTASSIUM 3.9 mmol/L (3.5-5.1); SODIUM 143 mmol/L (135-144); TOTAL PROTEIN 7.5 g/dl (6.1-8.1)
[2018-10-22 10:17] LABS: INR 0.96; PROTIME 12.9 Sec (11.9-14.9)
[2018-10-22] MEDS: HYDROmorphONE 2 MG/ML SYG IV (11:17)
[2018-10-22] MEDS: ONDANSETRON 4 MG INJ IV (11:17)
[2018-10-22] MEDS ORDERED: ONDANSETRON 4 MG INJ IV (13:30)
[2018-10-22] MEDS ORDERED: ACETAMINOPHEN 325 MG TAB PO (13:30)
[2018-10-22] MEDS ORDERED: DIAZEPAM LIQ 5 MG/ML PO SYG PO (14:00)
[2018-10-22] MEDS: HYDROCODONE/APAP (10/325) TAB PO ×2 (14:22→18:23)
[2018-10-22] MEDS: DIAZEPAM 5 MG TAB PO (14:22)
[2018-10-22] MEDS ORDERED: ONDANSETRON 4 MG TAB PO (17:30)
[2018-10-22] MEDS ORDERED: IBUPROFEN 200 MG TAB PO (17:30)
[2018-10-22] MEDS: PANTOPRAZOLE (EC) 40 MG TAB PO (18:23)
[2018-10-22] MEDS: SOD CHLORIDE 0.9% 1,000 ML IV (18:23)
[2018-10-22] MEDS: FOLIC ACID 1 MG TAB PO (20:28)
[2018-10-22] MEDS: DOCUSATE SODIUM 100 MG CAP PO (20:28)
[2018-10-22] MEDS: HYDROXYUREA 500 MG CAP PO (20:29)
[2018-10-22] MEDS: DIPHENHYDRAMINE 50 MG INJ INJ (20:30)
[2018-10-23] MEDS: DIPHENHYDRAMINE 25 MG CAP PO (03:10)
[2018-10-23] MEDS: KETOROLAC 30 MG INJ IV ×2 (03:10→09:07)
[2018-10-23] MEDS: SOD CHLORIDE 0.9% 1,000 ML IV (04:49)
[2018-10-23 05:08] LABS: ADD MAN DIFF? NO
[2018-10-23 05:10] LABS: WHITE BLOOD COUNT 6.8 10^3/ul (4.8-10.8)
[2018-10-23 05:10] LABS: BASOPHIL # 0.1 10^3/ul (0.0-0.1); BASOPHILS % 0.7 % (0.0-2.0); EOSINOPHILS # 0.4 10^3/ul (0.0-0.5); EOSINOPHILS % 5.2 % (0.0-7.0); HEMATOCRIT 24.1 % (37.0-47.0); HEMOGLOBIN 8.5 g/dl (12.0-16.0); LYMPHOCYTES # 3.8 10^3/ul (0.8-2.9); LYMPHOCYTES % 56.1 % (15.0-51.0); MEAN CORPUSCULAR HEMOGLOBIN 25.1 pg (29.0-33.0); MEAN CORPUSCULAR HGB CONC 35.3 g/dl (32.0-37.0); MEAN CORPUSCULAR VOLUME 71.1 fl (82.0-101.0); MEAN PLATELET VOLUME 9.1 fl (7.4-10.4); MONOCYTE # 0.7 10^3/ul (0.3-0.9); MONOCYTES % 9.9 % (0.0-11.0); NEUTROPHIL # 1.9 10^3/ul (1.6-7.5); NEUTROPHILS % 27.8 % (39.0-77.0); NUCLEATED RED BLOOD CELLS # 0.2 10^3/ul (0.0-0.0); NUCLEATED RED BLOOD CELLS% 2.5 /100WBC (0.0-0.0); PLATELET COUNT 400 10^3/UL (140-415); RED BLOOD COUNT 3.39 10^6/ul (4.20-5.40); RED CELL DISTRIBUTION WIDTH 15.8 % (11.5-14.5)
[2018-10-23 05:40] LABS: ANION GAP 5 (5-13); BLOOD UREA NITROGEN 9 mg/dl (7-20); CALCIUM 8.1 mg/dl (8.4-10.2); CARBON DIOXIDE 28 mmol/L (21-31); CHLORIDE 107 mmol/L (97-110); CREATININE 0.54 mg/dl (0.44-1.00); Estimated GFR > 60 mL/min (>60); GLUCOSE 84 mg/dl (70-220); POTASSIUM 3.4 mmol/L (3.5-5.1); SODIUM 140 mmol/L (135-144)
[2018-10-23] MEDS: DOCUSATE SODIUM 100 MG CAP PO (09:07)
[2018-10-23] MEDS: HYDROmorphONE 0.5 MG/0.5 ML SYG IV (11:15)
[2018-10-23] MEDS: POTASSIUM CHLORIDE 20 MEQ POWDER FOR ORAL SOLN PO (14:07)
== END 2018-10-23 14:53 | disposition home or self-care (01) ==
LOC: E/R 08:58 → MS1 13:15
DX: D57.00 Hb-SS disease with crisis, unspecified (principal)
CPT/HCPCS: 80048; 80053; 81001; 81003; 81025; 85025; 85045; 85610; 85730; 90686; 96374; 96375; 96376; 99285-25

== ENCOUNTER 2019-01-14 03:25 | Emergency (ER) | payer OTHER ==
[2019-01-14 04:41] LABS: URINE BLOOD (Dip) POC Negative (NEGATIVE); URINE KETONES (Dip) POC Negative (NEGATIVE); URINE LEUKOCYTE EST (Dip) POC Negative (NEGATIVE); URINE NITRITE (Dip) POC Negative (NEGATIVE); URINE TOTAL PROTEIN POC Negative (NEGATIVE)
[2019-01-14] MEDS: DIPHENHYDRAMINE 50 MG INJ IV (04:55)
[2019-01-14] MEDS: HYDROmorphONE 0.5 MG/0.5 ML SYG IV (04:56)
[2019-01-14] MEDS: SOD CHLORIDE 0.9% 1,000 ML IV (05:00)
[2019-01-14 05:03] LABS: ADD MAN DIFF? NO
[2019-01-14 05:10] LABS: BASOPHIL # 0.1 10^3/ul (0.0-0.1); BASOPHILS % 0.4 % (0.0-2.0); EOSINOPHILS # 0.4 10^3/ul (0.0-0.5); EOSINOPHILS % 2.2 % (0.0-7.0); HEMATOCRIT 24.9 % (37.0-47.0); HEMOGLOBIN 8.9 g/dl (12.0-16.0); LYMPHOCYTES # 3.6 10^3/ul (0.8-2.9); MEAN CORPUSCULAR HEMOGLOBIN 26.8 pg (29.0-33.0); MEAN CORPUSCULAR HGB CONC 35.7 g/dl (32.0-37.0); MEAN PLATELET VOLUME 9.1 fl (7.4-10.4); MONOCYTE # 0.6 10^3/ul (0.3-0.9); MONOCYTES % 3.9 % (0.0-11.0); NEUTROPHIL # 11.7 10^3/ul (1.6-7.5); NEUTROPHILS % 70.8 % (39.0-77.0); NUCLEATED RED BLOOD CELLS # 0.1 10^3/ul (0.0-0.0); NUCLEATED RED BLOOD CELLS% 0.5 /100WBC (0.0-0.0); PLATELET COUNT 371 10^3/UL (140-415); RED BLOOD COUNT 3.32 10^6/ul (4.20-5.40); RED CELL DISTRIBUTION WIDTH 14.8 % (11.5-14.5); RETICULOCYTE COUNT # 0.123 X10^6 (0.020-0.110); RETICULOCYTE COUNT % 3.7 % (0.5-1.5); RETICULOCYTE RBC 3.32
[2019-01-14 05:10] LABS: WHITE BLOOD COUNT 16.6 10^3/ul (4.8-10.8)
[2019-01-14 05:29] LABS: ALANINE AMINOTRANSFERASE 80 IU/L (13-69); ALBUMIN 4.4 g/dl (3.3-4.9); ALBUMIN/GLOBULIN RATIO 1.29; ALKALINE PHOSPHATASE 60 IU/L (42-121); ANION GAP 9 (5-13); ASPARTATE AMINO TRANSFERASE 89 IU/L (15-46); BILIRUBIN,INDIRECT 1.2 mg/dl (0-1.1); BILIRUBIN,TOTAL 1.2 mg/dl (0.2-1.3); BLOOD UREA NITROGEN 5 mg/dl (7-20); CALCIUM 9.2 mg/dl (8.4-10.2); CARBON DIOXIDE 26 mmol/L (21-31); CHLORIDE 104 mmol/L (97-110); CREATININE 0.46 mg/dl (0.44-1.00); Estimated GFR > 60 mL/min (>60); GLUCOSE 73 mg/dl (70-220); LIPASE 39 U/L (23-300); POTASSIUM 3.6 mmol/L (3.5-5.1); SODIUM 139 mmol/L (135-144); TOTAL PROTEIN 7.8 g/dl (6.1-8.1)
[2019-01-14] MEDS: HYDROCODONE/APAP (10/325) TAB PO (07:01)
== END 2019-01-14 07:09 | disposition home or self-care (01) ==
LOC: E/R 03:25
DX: D57.00 Hb-SS disease with crisis, unspecified (principal); D72.829 Elevated white blood cell count, unspecified; D64.9 Anemia, unspecified; R10.9 Unspecified abdominal pain
CPT/HCPCS: 36415; 71045; 80053; 81003; 81025; 83690; 85025; 85045; 96374; 96375; 99284-25

== ENCOUNTER 2019-01-15 09:14 | Inpatient (IN) | payer OTHER ==
[2019-01-15] MEDS: SOD CHLORIDE 0.9% 1,000 ML IV ×3 (12:03→17:30)
[2019-01-15] MEDS: ONDANSETRON 4 MG INJ IV ×2 (12:03→17:34)
[2019-01-15] MEDS: HYDROmorphONE 1 MG/ML SYG IV ×3 (12:04→21:34)
[2019-01-15] MEDS: DIPHENHYDRAMINE 50 MG INJ IV ×2 (12:04→14:44)
[2019-01-15] MEDS: HYDROmorphONE 2 MG/ML SYG IV (13:27)
[2019-01-15] MEDS ORDERED: ACETAMINOPHEN 325 MG TAB PO ×2 (14:00→16:30)
[2019-01-15 14:04] LABS: ADD MAN DIFF? NO
[2019-01-15 14:13] LABS: BASOPHIL # 0.1 10^3/ul (0.0-0.1); BASOPHILS % 0.3 % (0.0-2.0); EOSINOPHILS # 0.1 10^3/ul (0.0-0.5); EOSINOPHILS % 0.8 % (0.0-7.0); HEMATOCRIT 22.2 % (37.0-47.0); HEMOGLOBIN 8.1 g/dl (12.0-16.0); LYMPHOCYTES # 2.2 10^3/ul (0.8-2.9); LYMPHOCYTES % 14.2 % (15.0-51.0); MEAN CORPUSCULAR HEMOGLOBIN 27.4 pg (29.0-33.0); MEAN CORPUSCULAR HGB CONC 36.5 g/dl (32.0-37.0); MEAN PLATELET VOLUME 9.1 fl (7.4-10.4); MONOCYTE # 0.7 10^3/ul (0.3-0.9); MONOCYTES % 4.6 % (0.0-11.0); NEUTROPHIL # 12.1 10^3/ul (1.6-7.5); NEUTROPHILS % 79.4 % (39.0-77.0); NUCLEATED RED BLOOD CELLS # 0.1 10^3/ul (0.0-0.0); NUCLEATED RED BLOOD CELLS% 0.7 /100WBC (0.0-0.0); PLATELET COUNT 324 10^3/UL (140-415); RED BLOOD COUNT 2.96 10^6/ul (4.20-5.40); RED CELL DISTRIBUTION WIDTH 14.6 % (11.5-14.5); RETICULOCYTE COUNT # 0.127 X10^6 (0.020-0.110); RETICULOCYTE COUNT % 4.3 % (0.5-1.5); RETICULOCYTE RBC 2.96
[2019-01-15 14:13] LABS: WHITE BLOOD COUNT 15.2 10^3/ul (4.8-10.8)
[2019-01-15 14:32] LABS: ANION GAP 11 (5-13); BLOOD UREA NITROGEN 5 mg/dl (7-20); CALCIUM 8.8 mg/dl (8.4-10.2); CARBON DIOXIDE 23 mmol/L (21-31); CHLORIDE 105 mmol/L (97-110); CREATININE 0.41 mg/dl (0.44-1.00); Estimated GFR > 60 mL/min (>60); GLUCOSE 85 mg/dl (70-220); POTASSIUM 3.5 mmol/L (3.5-5.1); SODIUM 139 mmol/L (135-144)
[2019-01-15] MEDS ORDERED: BISACODYL (EC) 5 MG TAB PO (16:30)
[2019-01-15] MEDS ORDERED: DOCUSATE SODIUM 100 MG CAP PO (16:30)
[2019-01-15] MEDS ORDERED: ZOLPIDEM 5 MG TAB PO (16:30)
[2019-01-15] MEDS ORDERED: NA PHOSPHATE/BIPHOS 133 ML ENEMA PR (16:30)
[2019-01-15] MEDS ORDERED: MAGNESIUM HYDROXIDE 30ML CUP PO (16:30)
[2019-01-15] MEDS ORDERED: BISACODYL 10 MG SUPP PR (16:30)
[2019-01-15] MEDS ORDERED: NACL 0.9% 3 ML SYG IV (16:30)
[2019-01-15] MEDS: IBUPROFEN 200 MG TAB PO (17:31)
[2019-01-15] MEDS: DIPHENHYDRAMINE 50 MG INJ IM (17:34)
[2019-01-15] MEDS: DOCUSATE SODIUM 100 MG CAP PO (21:32)
[2019-01-15] MEDS: HYDROXYUREA 500 MG CAP PO (21:36)
[2019-01-16] MEDS: IBUPROFEN 200 MG TAB PO ×4 (00:25→18:00)
[2019-01-16] MEDS: DIPHENHYDRAMINE 50 MG INJ IV ×5 (01:33→20:38)
[2019-01-16] MEDS: HYDROmorphONE 1 MG/ML SYG IV ×5 (01:34→20:38)
[2019-01-16 05:14] LABS: ADD MAN DIFF? NO
[2019-01-16 05:22] LABS: BASOPHILS % 0.4 % (0.0-2.0); EOSINOPHILS # 0.3 10^3/ul (0.0-0.5); EOSINOPHILS % 2.7 % (0.0-7.0); HEMATOCRIT 20.7 % (37.0-47.0); HEMOGLOBIN 7.4 g/dl (12.0-16.0); LYMPHOCYTES % 27.1 % (15.0-51.0); MEAN CORPUSCULAR HEMOGLOBIN 27.1 pg (29.0-33.0); MEAN CORPUSCULAR HGB CONC 35.7 g/dl (32.0-37.0); MEAN CORPUSCULAR VOLUME 75.8 fl (82.0-101.0); MEAN PLATELET VOLUME 9.5 fl (7.4-10.4); MONOCYTE # 0.6 10^3/ul (0.3-0.9); MONOCYTES % 5.1 % (0.0-11.0); NEUTROPHIL # 7.1 10^3/ul (1.6-7.5); NEUTROPHILS % 64.1 % (39.0-77.0); NUCLEATED RED BLOOD CELLS # 0.1 10^3/ul (0.0-0.0); PLATELET COUNT 291 10^3/UL (140-415); RED BLOOD COUNT 2.73 10^6/ul (4.20-5.40); RED CELL DISTRIBUTION WIDTH 14.8 % (11.5-14.5)
[2019-01-16 05:22] LABS: WHITE BLOOD COUNT 11.1 10^3/ul (4.8-10.8)
[2019-01-16] MEDS: PANTOPRAZOLE 40 MG INJ IV (05:34)
[2019-01-16] MEDS: HYDROCODONE/APAP (10/325) TAB PO ×3 (05:36→18:11)
[2019-01-16] MEDS: SOD CHLORIDE 0.9% 1,000 ML IV ×2 (05:37→18:12)
[2019-01-16 06:13] LABS: ALANINE AMINOTRANSFERASE 87 IU/L (13-69); ALBUMIN 3.5 g/dl (3.3-4.9); ALKALINE PHOSPHATASE 101 IU/L (42-121); ANION GAP 8 (5-13); ASPARTATE AMINO TRANSFERASE 120 IU/L (15-46); BILIRUBIN,INDIRECT 0.8 mg/dl (0-1.1); BILIRUBIN,TOTAL 0.8 mg/dl (0.2-1.3); BLOOD UREA NITROGEN 4 mg/dl (7-20); CALCIUM 8.3 mg/dl (8.4-10.2); CARBON DIOXIDE 25 mmol/L (21-31); CHLORIDE 104 mmol/L (97-110); CREATININE 0.48 mg/dl (0.44-1.00); Estimated GFR > 60 mL/min (>60); GLUCOSE 69 mg/dl (70-220); POTASSIUM 3.4 mmol/L (3.5-5.1); SODIUM 137 mmol/L (135-144); TOTAL PROTEIN 6.4 g/dl (6.1-8.1)
[2019-01-16] MEDS: FOLIC ACID 1 MG TAB PO (08:55)
[2019-01-16] MEDS: DOCUSATE SODIUM 100 MG CAP PO ×2 (08:55→20:35)
[2019-01-16] MEDS: POTASSIUM CHLORIDE (SR) 10 MEQ TAB PO (14:15)
[2019-01-16] MEDS: ONDANSETRON 4 MG INJ IV (16:36)
[2019-01-16] MEDS: HYDROXYUREA 500 MG CAP PO (20:37)
[2019-01-17] MEDS: IBUPROFEN 200 MG TAB PO ×4 (00:09→17:26)
[2019-01-17] MEDS: HYDROCODONE/APAP (10/325) TAB PO ×3 (01:39→17:51)
[2019-01-17] MEDS: DIPHENHYDRAMINE 50 MG INJ IV ×4 (02:45→21:06)
[2019-01-17] MEDS: ONDANSETRON 4 MG INJ IV ×4 (02:45→21:07)
[2019-01-17] MEDS: HYDROmorphONE 1 MG/ML SYG IV ×2 (02:45→08:44)
[2019-01-17] MEDS: PANTOPRAZOLE 40 MG INJ IV (06:00)
[2019-01-17] MEDS: SOD CHLORIDE 0.9% 1,000 ML IV ×2 (06:03→18:03)
[2019-01-17 06:33] LABS: ADD MAN DIFF? NO
[2019-01-17 06:38] LABS: WHITE BLOOD COUNT 11.9 10^3/ul (4.8-10.8)
[2019-01-17 06:38] LABS: BASOPHILS % 0.3 % (0.0-2.0); EOSINOPHILS # 0.3 10^3/ul (0.0-0.5); EOSINOPHILS % 2.4 % (0.0-7.0); HEMATOCRIT 21.4 % (37.0-47.0); HEMOGLOBIN 7.8 g/dl (12.0-16.0); LYMPHOCYTES # 1.8 10^3/ul (0.8-2.9); LYMPHOCYTES % 14.8 % (15.0-51.0); MEAN CORPUSCULAR HEMOGLOBIN 27.2 pg (29.0-33.0); MEAN CORPUSCULAR HGB CONC 36.4 g/dl (32.0-37.0); MEAN CORPUSCULAR VOLUME 74.6 fl (82.0-101.0); MEAN PLATELET VOLUME 9.6 fl (7.4-10.4); MONOCYTE # 0.7 10^3/ul (0.3-0.9); MONOCYTES % 5.5 % (0.0-11.0); NEUTROPHIL # 9.1 10^3/ul (1.6-7.5); NEUTROPHILS % 76.6 % (39.0-77.0); NUCLEATED RED BLOOD CELLS # 0.1 10^3/ul (0.0-0.0); NUCLEATED RED BLOOD CELLS% 0.8 /100WBC (0.0-0.0); PLATELET COUNT 306 10^3/UL (140-415); RED BLOOD COUNT 2.87 10^6/ul (4.20-5.40); RED CELL DISTRIBUTION WIDTH 14.6 % (11.5-14.5)
[2019-01-17 07:10] LABS: ALANINE AMINOTRANSFERASE 94 IU/L (13-69); ALBUMIN 3.6 g/dl (3.3-4.9); ALKALINE PHOSPHATASE 149 IU/L (42-121); ANION GAP 7 (5-13); ASPARTATE AMINO TRANSFERASE 86 IU/L (15-46); BLOOD UREA NITROGEN 2 mg/dl (7-20); CALCIUM 8.7 mg/dl (8.4-10.2); CARBON DIOXIDE 24 mmol/L (21-31); CHLORIDE 106 mmol/L (97-110); CREATININE 0.37 mg/dl (0.44-1.00); Estimated GFR > 60 mL/min (>60); GLUCOSE 71 mg/dl (70-220); POTASSIUM 3.5 mmol/L (3.5-5.1); SODIUM 137 mmol/L (135-144); TOTAL PROTEIN 6.6 g/dl (6.1-8.1)
[2019-01-17] MEDS: FOLIC ACID 1 MG TAB PO ×2 (08:43)
[2019-01-17] MEDS: DOCUSATE SODIUM 100 MG CAP PO ×2 (08:43→21:06)
[2019-01-17] MEDS: HYDROmorphONE 0.5 MG/0.5 ML SYG IV ×2 (14:56→21:10)
[2019-01-17] MEDS: HYDROXYUREA 500 MG CAP PO (21:05)
[2019-01-18] MEDS: HYDROCODONE/APAP (10/325) TAB PO ×4 (00:13→22:20)
[2019-01-18] MEDS: IBUPROFEN 200 MG TAB PO ×5 (00:13→17:45)
[2019-01-18] MEDS: HYDROmorphONE 0.5 MG/0.5 ML SYG IV ×4 (03:42→20:01)
[2019-01-18] MEDS: DIPHENHYDRAMINE 50 MG INJ IV ×3 (03:42→16:48)
[2019-01-18] MEDS: ONDANSETRON 4 MG INJ IV ×3 (03:43→16:48)
[2019-01-18] MEDS: PANTOPRAZOLE (EC) 40 MG TAB PO (05:43)
[2019-01-18] MEDS: FOLIC ACID 1 MG TAB PO ×2 (08:38→09:52)
[2019-01-18] MEDS: DOCUSATE SODIUM 100 MG CAP PO ×2 (09:52→20:04)
[2019-01-18] MEDS: SOD CHLORIDE 0.9% 1,000 ML IV (10:03)
[2019-01-18] MEDS: HYDROXYUREA 500 MG CAP PO (20:06)
[2019-01-18 20:31] LABS: IMMEDIATE SPIN CROSSMATCH 1 4
[2019-01-19] MEDS: DIPHENHYDRAMINE 50 MG INJ IV ×3 (00:11→12:13)
[2019-01-19] MEDS: IBUPROFEN 200 MG TAB PO ×3 (00:11→12:00)
[2019-01-19] MEDS: ONDANSETRON 4 MG INJ IV ×3 (00:14→12:13)
[2019-01-19] MEDS: HYDROmorphONE 0.5 MG/0.5 ML SYG IV ×3 (00:17→12:14)
[2019-01-19] MEDS: SOD CHLORIDE 0.9% 1,000 ML IV ×2 (05:21→10:32)
[2019-01-19] MEDS: PANTOPRAZOLE (EC) 40 MG TAB PO (06:17)
[2019-01-19] MEDS: DOCUSATE SODIUM 100 MG CAP PO ×2 (09:00→12:14)
[2019-01-19] MEDS: FOLIC ACID 1 MG TAB PO ×3 (09:00→12:14)
[2019-01-19 10:44] LABS: ADD MAN DIFF? NO
[2019-01-19 10:48] LABS: BASOPHILS % 0.4 % (0.0-2.0); EOSINOPHILS # 0.2 10^3/ul (0.0-0.5); EOSINOPHILS % 1.9 % (0.0-7.0); HEMATOCRIT 29.7 % (37.0-47.0); HEMOGLOBIN 10.6 g/dl (12.0-16.0); LYMPHOCYTES # 2.1 10^3/ul (0.8-2.9); LYMPHOCYTES % 21.1 % (15.0-51.0); MEAN CORPUSCULAR HEMOGLOBIN 27.5 pg (29.0-33.0); MEAN CORPUSCULAR HGB CONC 35.7 g/dl (32.0-37.0); MEAN CORPUSCULAR VOLUME 77.1 fl (82.0-101.0); MONOCYTE # 0.8 10^3/ul (0.3-0.9); MONOCYTES % 7.6 % (0.0-11.0); NEUTROPHIL # 6.9 10^3/ul (1.6-7.5); NEUTROPHILS % 68.4 % (39.0-77.0); NUCLEATED RED BLOOD CELLS # 0.2 10^3/ul (0.0-0.0); NUCLEATED RED BLOOD CELLS% 1.8 /100WBC (0.0-0.0); PLATELET COUNT 301 10^3/UL (140-415); RED BLOOD COUNT 3.85 10^6/ul (4.20-5.40); RED CELL DISTRIBUTION WIDTH 16.7 % (11.5-14.5)
[2019-01-19] MEDS: HYDROCODONE/APAP (10/325) TAB PO (15:08)
== END 2019-01-19 14:20 | disposition home or self-care (01) | DRG 812 ==
LOC: E/R 09:14 → PP2 13:57
PROC: 30233N1 Transfusion of Nonautologous Red Blood Cells into Peripheral Vein, Percutaneous Approach (ICD-10-PCS; principal; 2019-01-18)
DX: D57.00 Hb-SS disease with crisis, unspecified (principal); D72.829 Elevated white blood cell count, unspecified; Z90.49 Acquired absence of other specified parts of digestive tract; Z90.81 Acquired absence of spleen
CPT/HCPCS: 36430; 71045; 80048; 80053; 85025; 85045; 86850; 86900; 86901; 86920; 96374; 96375; 96376; 99291-25

== ENCOUNTER 2019-01-24 15:04 | Emergency (ER) | payer OTHER ==
[2019-01-24] MEDS: SOD CHLORIDE 0.9% 1,000 ML IV (17:28)
[2019-01-24] MEDS: ONDANSETRON 4 MG INJ IV ×2 (17:31→18:30)
[2019-01-24] MEDS: HYDROmorphONE 1 MG/ML SYG IV (17:31)
[2019-01-24] MEDS: DIPHENHYDRAMINE 50 MG INJ IV ×2 (17:32→18:30)
[2019-01-24 17:50] LABS: ADD MAN DIFF? NO
[2019-01-24 17:52] LABS: BASOPHILS % 0.3 % (0.0-2.0); EOSINOPHILS # 0.3 10^3/ul (0.0-0.5); EOSINOPHILS % 2.1 % (0.0-7.0); HEMOGLOBIN 11.4 g/dl (12.0-16.0); LYMPHOCYTES # 2.9 10^3/ul (0.8-2.9); LYMPHOCYTES % 21.3 % (15.0-51.0); MEAN CORPUSCULAR HEMOGLOBIN 28.1 pg (29.0-33.0); MEAN CORPUSCULAR HGB CONC 35.6 g/dl (32.0-37.0); MEAN CORPUSCULAR VOLUME 78.8 fl (82.0-101.0); MEAN PLATELET VOLUME 9.3 fl (7.4-10.4); MONOCYTE # 0.9 10^3/ul (0.3-0.9); MONOCYTES % 6.6 % (0.0-11.0); NEUTROPHIL # 9.3 10^3/ul (1.6-7.5); NEUTROPHILS % 68.5 % (39.0-77.0); NUCLEATED RED BLOOD CELLS # 0.1 10^3/ul (0.0-0.0); NUCLEATED RED BLOOD CELLS% 0.6 /100WBC (0.0-0.0); PLATELET COUNT 382 10^3/UL (140-415); RED BLOOD COUNT 4.06 10^6/ul (4.20-5.40); RED CELL DISTRIBUTION WIDTH 16.7 % (11.5-14.5)
[2019-01-24 17:52] LABS: WHITE BLOOD COUNT 13.5 10^3/ul (4.8-10.8)
[2019-01-24 18:26] LABS: ALANINE AMINOTRANSFERASE 23 IU/L (13-69); ALBUMIN 4.3 g/dl (3.3-4.9); ALBUMIN/GLOBULIN RATIO 1.16; ALKALINE PHOSPHATASE 81 IU/L (42-121); ANION GAP 10 (5-13); ASPARTATE AMINO TRANSFERASE 24 IU/L (15-46); BLOOD UREA NITROGEN 10 mg/dl (7-20); CALCIUM 9.9 mg/dl (8.4-10.2); CARBON DIOXIDE 24 mmol/L (21-31); CHLORIDE 105 mmol/L (97-110); CREATININE 0.41 mg/dl (0.44-1.00); Estimated GFR > 60 mL/min (>60); GLUCOSE 98 mg/dl (70-220); POTASSIUM 3.3 mmol/L (3.5-5.1); SODIUM 139 mmol/L (135-144)
[2019-01-24] MEDS: HYDROmorphONE 2 MG/ML SYG IV (18:35)
[2019-01-24 18:38] LABS: TROPONIN-I < 0.012 ng/ml (0.000-0.120)
== END 2019-01-24 19:20 | disposition home or self-care (01) ==
LOC: E/R 15:04
DX: D57.00 Hb-SS disease with crisis, unspecified (principal)
CPT/HCPCS: 36415; 80053; 81025; 84484; 85025; 86850; 86900; 86901; 93005; 96374; 96375; 96376; 99284-25

== ENCOUNTER 2019-03-23 01:01 | Emergency (ER) | payer OTHER ==
[2019-03-23] MEDS: HYDROmorphONE 1 MG/ML SYG IV (02:13)
[2019-03-23] MEDS: DIPHENHYDRAMINE 50 MG INJ IV ×2 (02:13→03:56)
[2019-03-23] MEDS: SOD CHLORIDE 0.9% 1,000 ML IV (02:13)
[2019-03-23] MEDS: ONDANSETRON 4 MG INJ IV (02:13)
[2019-03-23 02:16] LABS: ADD MAN DIFF? NO
[2019-03-23 02:19] LABS: ADD UMIC YES; UR ASCORBIC ACID NEGATIVE (NEGATIVE); UR BACTERIA FEW /HPF (NONE SEEN); UR BILIRUBIN (Dip) NEGATIVE (NEGATIVE); UR BLOOD (Dip) 3+ mg/dL (NEGATIVE); UR CLARITY CLEAR (CLEAR); UR COLOR STRAW (YELLOW); UR GLUCOSE (Dip) NEGATIVE (NEGATIVE); UR KETONES (Dip) NEGATIVE (NEGATIVE); UR LEUKOCYTE ESTERASE (Dip) NEGATIVE Leu/ul (NEGATIVE); UR NITRITE (Dip) NEGATIVE (NEGATIVE); UR RBC 1 /HPF (0-5); UR SPECIFIC GRAVITY (Dip) 1.004 (1.003-1.030); UR TOTAL PROTEIN (Dip) NEGATIVE (NEGATIVE); UR UROBILINOGEN (Dip) NEGATIVE (NEGATIVE); UR WBC 1 /HPF (0-5)
[2019-03-23 02:20] LABS: WHITE BLOOD COUNT 8.9 10^3/ul (4.8-10.8)
[2019-03-23 02:20] LABS: BASOPHIL # 0.1 10^3/ul (0.0-0.1); EOSINOPHILS # 0.9 10^3/ul (0.0-0.5); EOSINOPHILS % 10.6 % (0.0-7.0); HEMATOCRIT 28.3 % (37.0-47.0); HEMOGLOBIN 9.9 g/dl (12.0-16.0); LYMPHOCYTES # 3.5 10^3/ul (0.8-2.9); LYMPHOCYTES % 39.2 % (15.0-51.0); MEAN CORPUSCULAR HEMOGLOBIN 27.3 pg (29.0-33.0); MEAN CORPUSCULAR VOLUME 78.2 fl (82.0-101.0); MEAN PLATELET VOLUME 9.1 fl (7.4-10.4); MONOCYTE # 0.7 10^3/ul (0.3-0.9); MONOCYTES % 7.3 % (0.0-11.0); NEUTROPHIL # 3.7 10^3/ul (1.6-7.5); NEUTROPHILS % 41.4 % (39.0-77.0); NUCLEATED RED BLOOD CELLS # 0.1 10^3/ul (0.0-0.0); NUCLEATED RED BLOOD CELLS% 1.5 /100WBC (0.0-0.0); PLATELET COUNT 475 10^3/UL (140-415); RED BLOOD COUNT 3.62 10^6/ul (4.20-5.40); RED CELL DISTRIBUTION WIDTH 14.4 % (11.5-14.5); RETICULOCYTE COUNT # 0.075 X10^6 (0.020-0.110); RETICULOCYTE COUNT % 2.1 % (0.5-1.5); RETICULOCYTE RBC 3.62
[2019-03-23 02:39] LABS: ANION GAP 6 (5-13); BLOOD UREA NITROGEN 7 mg/dl (7-20); CALCIUM 8.9 mg/dl (8.4-10.2); CARBON DIOXIDE 26 mmol/L (21-31); CHLORIDE 108 mmol/L (97-110); CREATININE 0.55 mg/dl (0.44-1.00); Estimated GFR > 60 mL/min (>60); GLUCOSE 93 mg/dl (70-220); LACTATE DEHYDROGENASE 468 IU/L (313-618); POTASSIUM 3.4 mmol/L (3.5-5.1); SODIUM 140 mmol/L (135-144)
[2019-03-23] MEDS: HYDROmorphONE 0.5 MG/0.5 ML SYG IV (03:09)
== END 2019-03-23 04:12 | disposition short-term general hospital (02) ==
LOC: E/R 04:12
DX: D57.00 Hb-SS disease with crisis, unspecified (principal)
CPT/HCPCS: 80048; 81001; 81025; 83615; 85025; 85045; 86850; 86900; 86901; 96374; 96375; 96376; 99285-25

== ENCOUNTER 2019-04-03 14:26 | Emergency (ER) | payer OTHER ==
[2019-04-03 15:50] LABS: ADD MAN DIFF? NO
[2019-04-03] MEDS: SOD CHLORIDE 0.9% 1,000 ML IV (15:52)
[2019-04-03 15:57] LABS: BASOPHIL # 0.1 10^3/ul (0.0-0.1); BASOPHILS % 0.7 % (0.0-2.0); EOSINOPHILS # 0.6 10^3/ul (0.0-0.5); EOSINOPHILS % 6.8 % (0.0-7.0); HEMATOCRIT 31.5 % (37.0-47.0); HEMOGLOBIN 11.1 g/dl (12.0-16.0); LYMPHOCYTES # 2.4 10^3/ul (0.8-2.9); LYMPHOCYTES % 27.8 % (15.0-51.0); MEAN CORPUSCULAR HEMOGLOBIN 26.6 pg (29.0-33.0); MEAN CORPUSCULAR HGB CONC 35.2 g/dl (32.0-37.0); MEAN CORPUSCULAR VOLUME 75.5 fl (82.0-101.0); MEAN PLATELET VOLUME 9.3 fl (7.4-10.4); MONOCYTE # 0.5 10^3/ul (0.3-0.9); MONOCYTES % 5.4 % (0.0-11.0); NEUTROPHIL # 5.1 10^3/ul (1.6-7.5); NEUTROPHILS % 59.1 % (39.0-77.0); NUCLEATED RED BLOOD CELLS # 0.1 10^3/ul (0.0-0.0); NUCLEATED RED BLOOD CELLS% 0.8 /100WBC (0.0-0.0); PLATELET COUNT 412 10^3/UL (140-415); RED BLOOD COUNT 4.17 10^6/ul (4.20-5.40); RETICULOCYTE COUNT # 0.035 X10^6 (0.020-0.110); RETICULOCYTE COUNT % 0.8 % (0.5-1.5); RETICULOCYTE RBC 4.17
[2019-04-03 15:57] LABS: WHITE BLOOD COUNT 8.7 10^3/ul (4.8-10.8)
[2019-04-03 16:14] LABS: ALANINE AMINOTRANSFERASE 18 IU/L (13-69); ALBUMIN 3.7 g/dl (3.3-4.9); ALBUMIN/GLOBULIN RATIO 1.12; ALKALINE PHOSPHATASE 49 IU/L (42-121); ANION GAP 10 (5-13); ASPARTATE AMINO TRANSFERASE 25 IU/L (15-46); BILIRUBIN,INDIRECT 1.2 mg/dl (0-1.1); BILIRUBIN,TOTAL 1.2 mg/dl (0.2-1.3); BLOOD UREA NITROGEN 5 mg/dl (7-20); CALCIUM 8.3 mg/dl (8.4-10.2); CARBON DIOXIDE 24 mmol/L (21-31); CHLORIDE 107 mmol/L (97-110); CREATININE 0.54 mg/dl (0.44-1.00); Estimated GFR > 60 mL/min (>60); GLUCOSE 134 mg/dl (70-220); POTASSIUM 3.1 mmol/L (3.5-5.1); SODIUM 141 mmol/L (135-144)
[2019-04-03] MEDS: DIPHENHYDRAMINE 50 MG INJ IV ×2 (16:22→18:52)
[2019-04-03] MEDS: HYDROmorphONE 1 MG/ML SYG IV (16:22)
[2019-04-03] MEDS: METOCLOPRAMIDE 10 MG INJ IV (16:33)
[2019-04-03] MEDS: KETOROLAC 30 MG INJ IV (16:34)
[2019-04-03 16:50] LABS: ADD UMIC YES; UR ASCORBIC ACID NEGATIVE (NEGATIVE); UR BILIRUBIN (Dip) NEGATIVE (NEGATIVE); UR BLOOD (Dip) 1+ mg/dL (NEGATIVE); UR CLARITY CLEAR (CLEAR); UR COLOR STRAW (YELLOW); UR GLUCOSE (Dip) NEGATIVE (NEGATIVE); UR KETONES (Dip) NEGATIVE (NEGATIVE); UR LEUKOCYTE ESTERASE (Dip) NEGATIVE Leu/ul (NEGATIVE); UR NITRITE (Dip) NEGATIVE (NEGATIVE); UR RBC 0 /HPF (0-5); UR SPECIFIC GRAVITY (Dip) 1.008 (1.003-1.030); UR TOTAL PROTEIN (Dip) NEGATIVE (NEGATIVE); UR UROBILINOGEN (Dip) NEGATIVE (NEGATIVE); UR WBC 0 /HPF (0-5)
[2019-04-03] MEDS: POTASSIUM CHLORIDE (SR) 20 MEQ TAB PO (17:30)
[2019-04-03] MEDS: HYDROmorphONE 2 MG/ML SYG IV ×2 (17:31→18:52)
[2019-04-03 18:16] LABS: SICKLE CELL SCREEN POSITIVE (NEGATIVE)
== END 2019-04-03 20:41 | disposition short-term general hospital (02) ==
LOC: E/R 14:26
DX: D57.00 Hb-SS disease with crisis, unspecified (principal)
CPT/HCPCS: 36415; 72170; 73510; 80053; 81001; 81025; 85025; 85045; 85660; 96361; 96374; 96375; 96376; 99285-25